=== PATIENT | male | born 1975 | race Caucasian/White ===

== ENCOUNTER 2022-08-25 11:13 | Day surgery (SDC) | payer BC, SELFPAY ==
[2022-08-25] VITALS (13 sets, daily range): BP systolic 92–134; BP diastolic 69–93; PULSE 57–67; RESP 16; TEMP 36.1–36.4; O2SAT 91–98; BMI 32.7
[2022-08-25] MEDS: LACTATED RINGERS 1000 ML 1,000 ML 100 ML IV (11:30)
--- NOTE | 2022-08-25 12:09 | W.ANESCHARGE ---
Anesthesia Charges Start Date/Time Anesthesia Start Date: 08/25/22 Anesthesia Start Time: 12:39 Stop Date/Time Anesthesia Stop Date: 08/25/22 Anesthesia Stop Time: 13:55 Summary Emergency: No
[2022-08-25] MEDS: SODIUM CHLORIDE 0.9 % (FLUSH) 10 ML SYRINGE IVF (12:17)
--- NOTE | 2022-08-25 13:02 | W.ANESCHARGE ---
Anesthesia Charges Start Date/Time Anesthesia Start Date: 08/25/22 Anesthesia Start Time: 12:39 Stop Date/Time Anesthesia Stop Date: 08/25/22 Anesthesia Stop Time: 13:55 Summary Emergency: No
--- NOTE | 2022-08-25 13:07 | SUR.PREOP ---
1145: Home COVID test negative-confirmed by underwriter mortgage loan.
[2022-08-25] MEDS: BUPIVACAINE 0.25% 30 ML INJECTION (13:34)
--- NOTE | 2022-08-25 13:43 | PM.GSPRC ---
Operative Note Date of procedure: 08/25/22 Type of Procedure: Open umbilical hernia repair with placement of mesh Procedure Description: After discussing the risks and benefits of the procedure, the patient signed informed consent.? The operative site was marked and the patient was brought to the operating room and placed on the operating table in supine position.? Care was taken to pad the patient's pressure points.?? The patient was then intubated by anesthesia.?? The operative site was then prepped and draped in the usual sterile fashion.? A time-out was then performed. A curvilinear incision was made at the umbilicus. Dissection was carried down into the subcutaneous tissue using cautery. The hernia sac was encountered and care was taken to not enter it. Dissection was taken down to the fascia, and the umbilical stock was carefully dissected off of the hernia sac. Once the hernia sac was dissected out circumferentially, it was reduced. The fascial edges were then cleared circumferentially. The hernia was 3 cm in size and so the decision was made to use a piece of mesh. A preperitoneal pocket was created using a combination of blunt dissection and cautery. Hemostasis appeared adequate. Once the posterior fascia was clear, a piece of medium Ventralex ST hernia mesh was placed in the preperitoneal space with care to ensure that it laid flat. This was secured into place using 2 0 PDS interrupted sutures. The tails were then trimmed and the fascial opening was closed with a running 0 Vicryl. Local anesthetic was injected into the fascia, skin and subcutaneous tissues. The umbilicus was reapproximated to the fascia. The skin was then closed with running absorbable suture. A sterile dressing was then applied. The patient was then woken and transported to the recovery area in stable condition. ? The patient tolerated the procedure well. Findings: 3 cm umbilical hernia, repaired with mesh. Anesthesia: GETA Surgeon: Nilam Trimble MD Estimated blood loss (mL): 10 Condition: stable Disposition: same day
[2022-08-25] MEDS: fentaNYL 100 MCG/2 ML inj 50 MCG IVP (14:01)
[2022-08-25] MEDS: OXYCODONE 5 MG TABLET PO ×2 (14:40→15:15)
== END 2022-08-25 16:15 | disposition home or self-care (01) ==
PROVIDERS: PCP Family Medicine; Visit Provider Surgery
PROC: (CPT 49585; principal; 2022-08-25 12:45)
DX: K42.9 Umbilical hernia without obstruction or gangrene (principal)
CPT/HCPCS: 49585; 00830; A9270; C1781; J0330; J1100; J1885; J2250; J2405; J2704; J3010; J3490; J7120

== ENCOUNTER 2023-06-08 13:48 | Emergency (ER) | payer BC, SELFPAY ==
[2023-06-08] VITALS (22 sets, daily range): BP systolic 114–143; BP diastolic 82–92; PULSE 58–75; RESP 18; TEMP 36.6; O2SAT 93–97; BMI 31.2
--- NOTE | 2023-06-08 14:15 | CRLHL7_ITS ---
For Patients: As a result of the Cures Act, medical imaging exams and procedure reports are released immediately into your electronic medical record. You may view this report before your referring provider. If you have questions, please contact your health care provider. Indication: Fall Comparison: Three-view shoulder September 19, 2019 Technique: AP internal, external rotation, and scapular-Y views of the left shoulder were obtained Findings: There is no displaced fracture or dislocation. There are degenerative changes of the acromioclavicular and glenohumeral joint with marginal osteophyte formation. The soft tissues are unremarkable. Impression: Degenerative changes of the shoulder without acute osseous abnormality. Dictated by Peng Marin MD @ 06/08/2023 3:36:24 PM (Electronically Signed)
--- NOTE | 2023-06-08 14:15 | CRLHL7_ITS ---
For Patients: As a result of the Cures Act, medical imaging exams and procedure reports are released immediately into your electronic medical record. You may view this report before your referring provider. If you have questions, please contact your health care provider. Indication: Fall from ladder Technique: Volumetric multidetector CT images of the cervical spine were obtained without the administration of IV contrast. Comparison: None available. Findings: The cervical vertebral body heights are grossly maintained with minimal endplate Schmorl`s defects. There is straightening and reversal of the normal cervical lordosis without evidence of significant spondylolisthesis or displaced fracture. There is no displaced fracture or dislocation. There is mild to moderate degenerative disc disease with disc height loss and marginal osteophyte formation. There is moderate facet arthrosis. The paraspinous soft tissues are grossly within normal limits. Impression: Marked straightening of the normal cervical lordosis consistent with spasmodic changes. Mild to moderate degenerative disc disease. No evidence of displaced fracture. Please note that all CT scans at this facility use dose modulation, iterative reconstruction, and/or weight-based dosing when appropriate to reduce radiation dose to as low as reasonably achievable. Dictated by Peng Marin MD @ 06/08/2023 3:47:02 PM (Electronically Signed)
--- NOTE | 2023-06-08 14:15 | CRLHL7_ITS ---
For Patients: As a result of the Century Cures Act, medical imaging exams and procedure reports are released immediately into your electronic medical record. You may view this report before your referring provider. If you have questions, please contact your health care provider. Indication: Fall from ladder, 10 feet Technique: Volumetric multidetector CT images of the head were obtained without the administration of low osmolar intravenous contrast. Comparison: None available Findings: There is no intra-axial or extra-axial fluid collection. There is no mass effect or midline shift. The ventricles and sulci are normal in size and position for age. There is mild chronic small vessel disease change within the subcortical and periventricular white matter. The brain parenchyma is otherwise preserved in attenuation and hobbs-white differentiation. The orbits and their contents are grossly within normal limits. The bony calvarium is grossly intact. The paranasal sinuses are clear. The mastoid air cells are well aerated. Impression: Mild chronic small vessel disease changes white matter without acute intracranial abnormality. Please note that all CT scans at this facility use dose modulation, iterative reconstruction, and/or weight-based dosing when appropriate to reduce radiation dose to as low as reasonably achievable. Dictated by Peng Marin MD @ 06/08/2023 3:42:31 PM (Electronically Signed)
[2023-06-08] MEDS: OXYCODONE 5 MG TABLET PO (14:27)
--- NOTE | 2023-06-08 14:35 | ED_ITS ---
HPI - General Adult General Date Seen: 06/08/23 Chief complaint: Fall/Minor Trauma Stated complaint: Fell off 10 ft ladder at home, back. neck. calf. Time Seen by Provider: 06/08/23 13:51 Source: patient Mode of arrival: ambulatory Limitations: no limitations History of Present Illness HPI narrative: Patient is a 47-year-old male with no pertinent medical problems presenting to the emergency department after a fall off a ladder. He says his but 11 ft up on the ladder when he stood on the top rung causing it to fall over. He landed on his deck. He thought he landed fully on his back butts does note that mostly his left shoulder that hurts given some right calf tenderness. He has some mild pain to this paraspinal muscles of the neck. He does not know if he hit his head does not know for sure if he lost consciousness because all happened too fast. He states he believes shortly after he fell he quickly got up and walked around this evening the mother decided because he was embarrassed that he fell. This happened about 1 hour prior to arrival. He had come in immediately but knows the shoulder pain continues to hurt so he came in to get x-rays of the left shoulder to make sure there are no fractures. He does state he is able to move it without issues. Denies chest pain, abdominal pain, back pain, headache, vision changes, weakness, numbness. No other concerns at this time. He does not know when his last tetanus was Related Data Previous Rx's Medication Instructions Recorded cyclobenzaprine 10 mg tablet 10 mg PO TID #15 tabs 06/08/23 Allergies Allergy/AdvReac Type Severity Reaction Status Date / Time penicillin V Allergy Mild Rash Verified 06/08/23 14:00 penicillin G Allergy Verified 06/08/23 14:00 [facility] Medical History Arthritis of left acromioclavicular joint ?M19.012 - Primary osteoarthritis, left shoulder (ICD-10) Soft tissue injury of right hand ?S69.91XA - Unspecified injury of right wrist, hand and finger(s), initial encounter (ICD-10) Soft tissue injury of left hand ?S69.92XA - Unspecified injury of left wrist, hand and finger(s), initial encounter (ICD-10) Pill esophagitis ?K20.80 - Other esophagitis without bleeding (ICD-10) ?T50.905A - Adverse effect of unspecified drugs, medicaments and biological substances, initial encounter (ICD-10) Alveolitis of jaw ?M27.3 - Alveolitis of jaws (ICD-10) Osteoarthritis of left knee ?M17.12 - Unilateral primary osteoarthritis, left knee (ICD-10) Osteoarthritis of left shoulder ?M19.012 - Primary osteoarthritis, left shoulder (ICD-10) Left radial head fracture (05/15/11) ?S52.122A - Displaced fracture of head of left radius, initial encounter for closed fracture (ICD-10) Surgical History H/O shoulder surgery (~1988) ?Z98.890 - Other specified postprocedural states (ICD-10) History of arthroscopy of left shoulder (09/12/19) ?Z98.890 - Other specified postprocedural states (ICD-10) History of arthroscopy of left knee (09/17/20) ?Z98.890 - Other specified postprocedural states (ICD-10) Social History Smoking Status: Former smoker How often do you have a drink containing alcohol: never How often do you have six or more drinks on one occasion: Never AUDIT-C Alcohol total score: 0 Non-prescribed substance use: denies use Caffeine: Yes service: No Exam Narrative: Exam Narrative: Const: Well-nourished, Well-developed, in mild distress Eyes: PERRL, no conjunctival injection, and symmetrical lids ENMT: Atraumatic external nose and ears. Moist mucous membranes. Neck: Symmetric, trachea midline, No thyromegaly. CVS: RRR, No murmurs or gallops. Peripheral pulses 2+ and equal in all extremities RESP: Unlabored respiratory effort. Clear to auscultation bilaterally. GI: Nontender/Nondistended, No rebound or guarding. MSK:Extremities w/o deformity, Normal Active ROM. No tenderness to palpation noted to the patient's midline cervical, lumbar, thoracic spine. No tenderness noted the patient joints or bones other than left anterior shoulder. Skin: Warm, Dry. Abrasion noted to right merchant and right forearm Neuro: Normal Muscle tone, No focal neurological deficits. Psych: Awake, Alert, & Oriented x3. Appropriate mood and affect. Const: Vital Signs, click to edit/add: Vital Signs - 24 hr 06/08/23 14:00 06/08/23 14:52 06/08/23 14:53 Temperature 97.8 F Pulse Rate 65 65 Pulse Rate [Pulse Oximeter] 70 Respiratory Rate 18 Blood Pressure 117/82 Blood Pressure [Ri ght Upper Arm] 143/90 H Pulse Oximetry 96 96 94 06/08/23 15:00 06/08/23 15:02 06/08/23 15:03 Temperature Pulse Rate 60 62 65 Pulse Rate [Pulse Oximeter] Respiratory Rate Blood Pressure 129/88 Blood Pressure [Ri ght Upper Arm] Pulse Oximetry 96 93 95 06/08/23 15:12 06/08/23 15:15 06/08/23 15:21 Temperature Pulse Rate 67 63 66 Pulse Rate [Pulse Oximeter] Respiratory Rate Blood Pressure 114/84 122/90 H Blood Pressure [Ri ght Upper Arm] Pulse Oximetry 95 95 94 06/08/23 15:22 06/08/23 15:30 06/08/23 15:31 Temperature Pulse Rate 69 64 64 Pulse Rate [Pulse Oximeter] Respiratory Rate Blood Pressure 121/88 Blood Pressure [Ri ght Upper Arm] Pulse Oximetry 96 95 95 06/08/23 15:42 06/08/23 15:45 06/08/23 15:51 Temperature Pulse Rate 65 66 75 Pulse Rate [Pulse Oximeter] Respiratory Rate Blood Pressure 123/83 114/86 Blood Pressure [Ri ght Upper Arm] Pulse Oximetry 96 95 96 06/08/23 15:52 06/08/23 16:00 06/08/23 16:02 Temperature Pulse Rate 62 68 65 Pulse Rate [Pulse Oximeter] Respiratory Rate Blood Pressure 122/91 H Blood Pressure [Ri ght Upper Arm] Pulse Oximetry 96 96 95 06/08/23 16:15 06/08/23 16:30 06/08/23 16:31 Temperature Pulse Rate 61 58 L 63 Pulse Rate [Pulse Oximeter] Respiratory Rate Blood Pressure 127/92 H Blood Pressure [Ri ght Upper Arm] Pulse Oximetry 97 96 95 06/08/23 16:32 Temperature Pulse Rate 65 Pulse Rate [Pulse Oximeter] Respiratory Rate Blood Pressure Blood Pressure [Ri ght Upper Arm] Pulse Oximetry 94 Course Vital Signs Vital signs: Initial Vital Signs Temperature 97.8 F 06/08/23 14:00 Temperature Source Temporal Artery Scan 06/08/23 14:00 Pulse Rate 70 06/08/23 14:00 Respiratory Rate 18 06/08/23 14:00 Blood Pressure 143/90 H 06/08/23 14:00 Blood Pressure Mean 107 H 06/08/23 14:00 Blood Pressure Position Semi-Fowlers 06/08/23 14:00 Pulse Oximetry 96 06/08/23 14:00 Vital Signs Temperature 97.8 F 06/08/23 14:00 Pulse Rate 70 06/08/23 14:00 Respiratory Rate 18 06/08/23 14:00 Blood Pressure 143/90 H 06/08/23 14:00 Pulse Oximetry 96 06/08/23 14:00 Temperature 97.8 F 06/08/23 14:00 Pulse Rate 65 06/08/23 16:32 Respiratory Rate 18 06/08/23 14:00 Blood Pressure 127/92 H 06/08/23 16:31 Pulse Oximetry 94 06/08/23 16:32 Medical Decision Making MDM Narrative Medical decision making narrative: Patient is a 47-year-old male who fell from a ladder bone 11 ft up onto his back. He has not noted lost consciousness or not but thinks he got up right away after the fall. Denies any lightheadedness or dizziness before or after the fall. This happened roughly an hour prior to arrival he is having left shoulder pain sick in emergency department to be evaluated. Pain does radiate to his left side of his neck for this no midline tenderness. He has no midline tenderness to the rest of his spine. No tenderness palpation of the abdomen or chest or to any of his other joints. This point I not believe it was necessary to he imaging thing else other than his head, cervical spine, left shoulder. He does have some tenderness in his right calf but no tenderness noted to the tibia or fibula. Due to the mechanism of injury a TTA was called. He was given oxycodone for pain and a Toradol shot. He says tetanus shot was 5 years ago he had not believe it is necessary to do another 1. Patient's imaging returned showing no acute abnormalities and he is feeling well at this time. He may safely discharged home. He is agreeable to this plan. Imaging Data CT scan - head: Radiologist's impression: Indication: Fall from ladder, 10 feet Technique: Volumetric multidetector CT images of the head were obtained without the administration of low osmolar intravenous contrast. Comparison: None available Findings: There is no intra-axial or extra-axial fluid collection. There is no mass effect or midline shift. The ventricles and sulci are normal in size and position for age. There is mild chronic small vessel disease change within the subcortical and periventricular white matter. The brain parenchyma is otherwise preserved in attenuation and hobbs-white differentiation. The orbits and their contents are grossly within normal limits. The bony calvarium is grossly intact. The paranasal sinuses are clear. The mastoid air cells are well aerated. Impression: Mild chronic small vessel disease changes white matter without acute intracranial abnormality. Please note that all CT scans at this facility use dose modulation, iterative reconstruction, and/or weight-based dosing when appropriate to reduce radiation dose to as low as reasonably achievable. Dictated by Peng Marin MD @ 06/08/2023 3:42:[address] scan cervical spine: Radiologist's impression: Indication: Fall from ladder Technique: Volumetric multidetector CT images of the cervical spine were obtained without the administration of IV contrast. Comparison: None available. Findings: The cervical vertebral body heights are grossly maintained with minimal endplate Schmorl`s defects. There is straightening and reversal of the normal cervical lordosis without evidence of significant spondylolisthesis or displaced fracture. There is no displaced fracture or dislocation. There is mild to moderate degenerative disc disease with disc height loss and marginal osteophyte formation. There is moderate facet arthrosis. The paraspinous soft tissues are grossly within normal limits. Impression: Marked straightening of the normal cervical lordosis consistent with spasmodic changes. Mild to moderate degenerative disc disease. No evidence of displaced fracture. Please note that all CT scans at this facility use dose modulation, iterative reconstruction, and/or weight-based dosing when appropriate to reduce radiation dose to as low as reasonably achievable. Dictated by Peng Marin MD @ 06/08/2023 3:47:02 PM X-ray left shoulder: Radiologist's impression: Indication: Fall Comparison: Three-view shoulder September 19, 2019 Technique: AP internal, external rotation, and scapular-Y views of the left shoulder were obtained Findings: There is no displaced fracture or dislocation. There are degenerative changes of the acromioclavicular and glenohumeral joint with marginal osteophyte formation. The soft tissues are unremarkable. Impression: Degenerative changes of the shoulder without acute osseous abnormality. Dictated by Peng Marin MD @ 06/08/2023 3:36:24 PM Discharge Plan Discharge Clinical Impression: Muscle strain Patient Disposition: Home, Self-Care Condition: Stable Instructions: Cervical Strain (DC), Muscle Strain (DC), Bone Bruise (ED) Additional Instructions: You can take Tylenol and ibuprofen for pain. Return emergency department for any new or worsening symptoms. If your using his shoulder and it is painful you should rest it and do not over work it. Prescriptions: New cyclobenzaprine 10 mg tablet 10 mg PO TID Qty: 15 0RF Follow Up/Referrals: Evelio Sheikh MD [Primary Care Provider] - Stand Alone Forms: [employer] Info Instructions
--- NOTE | 2023-06-08 16:03 | ED.NURSE ---
Pain in shoulder reported by pt, also reporting a headache as well.
[2023-06-08] MEDS: KETOROLAC 30 MG/ML inj IM (16:14)
== END 2023-06-08 16:53 | disposition home or self-care (01) ==
PROVIDERS: Emergency Provider Student in an Organized Health Care Education/Training Program; PCP Family Medicine
DX: S16.1XXA Strain of muscle, fascia and tendon at neck level, initial encounter (principal); W11.XXXA Fall on and from ladder, initial encounter
CPT/HCPCS: 70450; 72125; 73030; 96372; 99283; 99284; 99291; A9270; J1885

== ENCOUNTER 2023-07-20 12:42 | Emergency (ER) | payer BC, SELFPAY ==
[2023-07-20 12:49] VITALS: BP 137/91; PULSE 66; RESP 20; TEMP 36.3; O2SAT 98; BMI 32.7
--- NOTE | 2023-07-20 13:09 | ED.GENADULT ---
HPI - General Adult General Chief complaint: Extremity Pain/Injury, Upper Stated complaint: L shoulder injury Time Seen by Provider: 07/20/23 12:53 Source: patient Mode of arrival: ambulatory Limitations: no limitations History of Present Illness HPI narrative: 47 year male coming in today complaining of shoulder pain. Patient states that he has bone on bone arthritis in that left shoulder. He has had pain for many years however this morning he woke up in the pain was much worse. He believes is likely because he slept on his stomach last night which he has been told in the past not to do. He denies any fevers or chills. No other systemic symptoms. He denies any recent trauma to the shoulder. Nothing seems to make the pain better or worse. He took Tylenol this morning and that did not help. The pain is located inside the shoulder joint radiates all the way up and down his arm and into his neck. Movement makes the pain worse. Related Data Previous Rx's Medication Instructions Recorded cyclobenzaprine 10 mg tablet 10 mg PO TID #15 tabs 06/08/23 methylprednisolone 4 mg tablets in See Rx Instructions PO .COMPLEX 07/20/23 a dose pack (Medrol ([place])) #21 ea Allergies Allergy/AdvReac Type Severity Reaction Status Date / Time penicillin V Allergy Mild Rash Verified 06/08/23 14:00 penicillin G Allergy Verified 06/08/23 14:00 Review of Systems Status of ROS: Reports: 10 or more systems reviewed and unremarkable except as noted in History and below [facility] Medical History Arthritis of left acromioclavicular joint ?M19.012 - Primary osteoarthritis, left shoulder (ICD-10) Soft tissue injury of right hand ?S69.91XA - Unspecified injury of right wrist, hand and finger(s), initial encounter (ICD-10) Soft tissue injury of left hand ?S69.92XA - Unspecified injury of left wrist, hand and finger(s), initial encounter (ICD-10) Pill esophagitis ?K20.80 - Other esophagitis without bleeding (ICD-10) ?T50.905A - Adverse effect of unspecified drugs, medicaments and biological substances, initial encounter (ICD-10) Alveolitis of jaw ?M27.3 - Alveolitis of jaws (ICD-10) Osteoarthritis of left knee ?M17.12 - Unilateral primary osteoarthritis, left knee (ICD-10) Osteoarthritis of left shoulder ?M19.012 - Primary osteoarthritis, left shoulder (ICD-10) Left radial head fracture (05/15/11) ?S52.122A - Displaced fracture of head of left radius, initial encounter for closed fracture (ICD-10) Surgical History H/O shoulder surgery (~1988) ?Z98.890 - Other specified postprocedural states (ICD-10) History of arthroscopy of left shoulder (09/12/19) ?Z98.890 - Other specified postprocedural states (ICD-10) History of arthroscopy of left knee (09/17/20) ?Z98.890 - Other specified postprocedural states (ICD-10) Social History Smoking Status: Former smoker How often do you have a drink containing alcohol: never How often do you have six or more drinks on one occasion: Never AUDIT-C Alcohol total score: 0 Non-prescribed substance use: denies use Caffeine: Yes service: No Exam Narrative: Exam Narrative: Well-nourished well-developed patient, uncomfortable. Alert and oriented. Answers questions appropriately. Mood and affect are appropriate. Thoughts are goal oriented and rational. No tangential or magical thinking noted. Patient speaks in full sentences without needing to catch his breath. HEENT: Normocephalic atraumatic. Pupils are equally round reactive to light. Extraocular muscles are intact. Conjunctivae are moist without any icterus noted. Moist mucous membranes. Extremities: Shoulders normal appearance. He has decreased range of motion with adduction in the plane of the body he cannot go but of 90?. He cannot put his arm behind his back. Is a normal radial pulse. He has no tenderness to palpation of the upper arm, elbow, forearm or wrist. There is no swelling or erythema noted. Const: Vital Signs, click to edit/add: Vital Signs - 24 hr 07/20/23 12:49 Temperature 97.3 F L Pulse Rate [Pulse Oximeter] 66 Respiratory Rate 20 Blood Pressure [Ri ght Upper Arm] 137/91 H Pulse Oximetry 98 Course Course ED Course: Patient received 60 mg of IM Toradol while he was here. Patient tells me that at his last appointment with Orthopedics he was told that surgery was his only option. He is asking me today what other options there are. Vital Signs Vital signs: Initial Vital Signs Temperature 97.3 F L 07/20/23 12:49 Temperature Source Temporal Artery Scan 07/20/23 12:49 Pulse Rate 66 07/20/23 12:49 Respiratory Rate 20 07/20/23 12:49 Blood Pressure 137/91 H 07/20/23 12:49 Blood Pressure Mean 106 H 07/20/23 12:49 Pulse Oximetry 98 07/20/23 12:49 Vital Signs Temperature 97.3 F L 07/20/23 12:49 Pulse Rate 66 07/20/23 12:49 Respiratory Rate 20 07/20/23 12:49 Blood Pressure 137/91 H 07/20/23 12:49 Pulse Oximetry 98 07/20/23 12:49 Temperature 97.3 F L 07/20/23 12:49 Pulse Rate 66 07/20/23 12:49 Respiratory Rate 20 07/20/23 12:49 Blood Pressure 137/91 H 07/20/23 12:49 Pulse Oximetry 98 07/20/23 12:49 Medical Decision Making MDM Narrative Medical decision making narrative: 47-year-old male with osteoarthritis of the left shoulder. We discussed that further imaging today would not yield any new results. I do recommend he follow up with Orthopedics for further management. Discharge Plan Discharge Clinical Impression: Osteoarthritis of left shoulder Patient Disposition: Home, Self-Care Condition: Stable Additional Instructions: Take all steroid as prescribed. Okay to use pain medications as needed. Recommend wearing sling at all times to decrease shoulder movement. Follow-up with orthopedics. Steroid sent to pharmacy, pain medication sent to [facility]. Prescriptions: New methylprednisolone [Medrol ([place])] 4 mg tablets,dose pack See Rx Instructions .ROUTE .COMPLEX Qty: 21 0RF Rx Instructions: orally per package directions No Action cyclobenzaprine 10 mg tablet 10 mg PO TID Qty: 15 0RF Follow Up/Referrals: Evelio Sheikh MD [Primary Care Provider] - Stand Alone Forms: [employer] Info Instructions
[2023-07-20] MEDS: KETOROLAC 60 MG/2 ML inj IM (13:12)
== END 2023-07-20 13:34 | disposition home or self-care (01) ==
LOC: ED 13:15
PROVIDERS: Emergency Provider Family Medicine; PCP Family Medicine
DX: M19.012 Primary osteoarthritis, left shoulder (principal)
CPT/HCPCS: 96372; 99284; J1885

== ENCOUNTER 2023-08-21 17:17 | Emergency (ER) | payer BC, SELFPAY ==
[2023-08-21] VITALS (8 sets, daily range): BP systolic 117; BP diastolic 68; PULSE 69–85; RESP 20; TEMP 38.8; O2SAT 93–98; BMI 32.7
[2023-08-21] MEDS: ACETAMINOPHEN 500 MG TABLET 1000 MG PO (18:37)
[2023-08-21 19:14] LABS: PCR FLU A Negative PCR FLU A (Negative); PCR FLU B Negative PCR FLU B (Negative); PCR RSV Negative PCR RSV (Negative)
[2023-08-21 19:15] LABS: SARS PCR* Negative SARS-CoV-2 (Negative)
--- NOTE | 2023-08-21 21:41 | ED_ITS ---
HPI - General Adult General Chief complaint: Dizziness/Vertigo Stated complaint: Dizzy, nausea, headache Time Seen by Provider: 08/21/23 21:41 Related Data Home Medications Medication Instructions Recorded Confirmed hydrocodone 5 mg-acetaminophen 325 1 tab PO DAILY PRN 08/21/23 08/21/23 mg tablet Previous Rx's Medication Instructions Recorded cyclobenzaprine 10 mg tablet 10 mg PO TID #15 tabs 06/08/23 Allergies Allergy/AdvReac Type Severity Reaction Status Date / Time penicillin V Allergy Mild Rash Verified 08/21/23 18:22 penicillin G Allergy Verified 08/21/23 18:22 [facility] Medical History Arthritis of left acromioclavicular joint ?M19.012 - Primary osteoarthritis, left shoulder (ICD-10) Soft tissue injury of right hand ?S69.91XA - Unspecified injury of right wrist, hand and finger(s), initial encounter (ICD-10) Soft tissue injury of left hand ?S69.92XA - Unspecified injury of left wrist, hand and finger(s), initial encounter (ICD-10) Pill esophagitis ?K20.80 - Other esophagitis without bleeding (ICD-10) ?T50.905A - Adverse effect of unspecified drugs, medicaments and biological substances, initial encounter (ICD-10) Alveolitis of jaw ?M27.3 - Alveolitis of jaws (ICD-10) Osteoarthritis of left knee ?M17.12 - Unilateral primary osteoarthritis, left knee (ICD-10) Osteoarthritis of left shoulder ?M19.012 - Primary osteoarthritis, left shoulder (ICD-10) Left radial head fracture (05/15/11) ?S52.122A - Displaced fracture of head of left radius, initial encounter for closed fracture (ICD-10) Surgical History H/O shoulder surgery (~1988) ?Z98.890 - Other specified postprocedural states (ICD-10) History of arthroscopy of left shoulder (09/12/19) ?Z98.890 - Other specified postprocedural states (ICD-10) History of arthroscopy of left knee (09/17/20) ?Z98.890 - Other specified postprocedural states (ICD-10) Social History Smoking Status: Former smoker How often do you have a drink containing alcohol: never How often do you have six or more drinks on one occasion: Never AUDIT-C Alcohol total score: 0 Non-prescribed substance use: denies use Caffeine: Yes service: No Exam Const: Vital Signs, click to edit/add: Vital Signs - 24 hr 08/21/23 18:15 08/21/23 18:37 Temperature 101.9 F H 101.9 F H Pulse Rate [Right Pulse Oximeter] 85 Respiratory Rate 20 Blood Pressure [Ri ght Upper Arm] 117/68 Pulse Oximetry 98 Oxygen Delivery Me thod Room Air Course Vital Signs Vital signs: Initial Vital Signs Temperature 101.9 F H 08/21/23 18:15 Temperature Source Temporal Artery Scan 08/21/23 18:15 Pulse Rate 85 08/21/23 18:15 Respiratory Rate 20 08/21/23 18:15 Blood Pressure 117/68 08/21/23 18:15 Blood Pressure Mean 84 08/21/23 18:15 Blood Pressure Position Sitting 08/21/23 18:15 Pulse Oximetry 98 08/21/23 18:15 Oxygen Delivery Method Room Air 08/21/23 18:15 Vital Signs Temperature 101.9 F H 08/21/23 18:15 Pulse Rate 85 08/21/23 18:15 Respiratory Rate 20 08/21/23 18:15 Blood Pressure 117/68 08/21/23 18:15 Pulse Oximetry 98 08/21/23 18:15 Oxygen Delivery Method Room Air 08/21/23 18:15 Temperature 101.9 F H 08/21/23 18:37 Pulse Rate 85 08/21/23 18:15 Respiratory Rate 20 08/21/23 18:15 Blood Pressure 117/68 08/21/23 18:15 Pulse Oximetry 98 08/21/23 18:15 Oxygen Delivery Method Room Air 08/21/23 18:15 Medications Administered Medications: Generic Name Dose Route Start Last Admin Trade Name Freq PRN Reason Stop Dose Admin Acetaminophen 1,000 mg 08/21/23 18:28 08/21/23 18:37 Acetaminophen 500 Mg Tablet PO 08/21/23 18:29 1,000 mg ONCE ONE Administration Medical Decision Making Lab Data Labs: Lab Results 08/21/23 Range/Units 18:23 SARS-CoV-2 (PCR) Negative SARS-CoV-2 (Negative) Influenza Type A (PCR) Negative PCR FLU A (Negative) Influenza Type B (PCR) Negative PCR FLU B (Negative) RSV (PCR) Negative PCR RSV (Negative) Discharge Plan Discharge Prescriptions: No Action cyclobenzaprine 10 mg tablet 10 mg PO TID Qty: 15 0RF hydrocodone-acetaminophen 5-325 mg tablet 1 tab PO DAILY PRN Follow Up/Referrals: Evelio Sheikh MD [Primary Care Provider] -
--- NOTE | 2023-08-21 21:42 | CRLHL7_ITS ---
For Patients: As a result of the Century Cures Act, medical imaging exams and procedure reports are released immediately into your electronic medical record. You may view this report before your referring provider. If you have questions, please contact your health care provider. INDICATION: Fever, cough TECHNIQUE: Chest 2 view. Permanently recorded images are archived. COMPARISON: 11/20/2013 FINDINGS: Cardiovascular and mediastinum: Heart size and vasculature are normal in caliber and appearance. Lungs and pleural spaces: The lungs are clear. No pleural effusion or pneumothorax. Bones and soft tissues: Unremarkable for age. IMPRESSION: No evidence of an acute pulmonary process. Dictated by Prince Alvarez MD @ 08/21/2023 11:13:54 PM (Electronically Signed)
--- NOTE | 2023-08-21 22:02 | ED_ITS ---
HPI - General Adult General Date Seen: 08/21/23 <Bonnie Pascual MD - Last Filed: 08/22/23 17:25> Chief complaint: Dizziness/Vertigo <Bonnie Pascual MD - Last Filed: 08/22/23 17:25> Stated complaint: Dizzy, nausea, headache <MD Flaquita Jose Last Filed: 08/22/23 17:25> Time Seen by Provider: 08/21/23 21:41 <Bonnie Pascual MD - Last Filed: 08/22/23 17:25> Source: patient and family <MD Flaquita Jose Last Filed: 08/22/23 17:25> Mode of arrival: ambulatory <MD Flaquita Jose Last Filed: 08/22/23 17:25> Limitations: no limitations <MD Flaquita Jose Last Filed: 08/22/23 17:25> History of Present Illness HPI narrative: Patient is a 47-year-old male presenting for evaluation of fever onset around 5:00 p.m. yesterday associated with headache, body aches, cough, nausea and an episode or 2 of vomiting. He says he feels constipated, does not have abdominal pain. No unusual rashes. No ill contacts that he is aware of. Viral swab was obtained in triage and was negative for COVID, influenza and RSV. Denies prior medical history, does not smoke or drink. Here tonight with his . <Bonnie Pascual MD - Last Filed: 08/22/23 17:25> Related Data Home medications: Home Medications Medication Instructions Recorded Confirmed hydrocodone 5 mg-acetaminophen 325 1 tab PO DAILY PRN 08/21/23 08/21/23 mg tablet Previous Rx's Medication Instructions Recorded cyclobenzaprine 10 mg tablet 10 mg PO TID #15 tabs 06/08/23 <MD Flaquita Jose Last Filed: 08/22/23 17:25> Allergies/adverse reactions: Allergies Allergy/AdvReac Type Severity Reaction Status Date / Time penicillin V Allergy Mild Rash Verified 08/21/23 18:22 penicillin G Allergy Verified 08/21/23 18:22 <MD Flaquita Jose Last Filed: 08/22/23 17:25> Review of Systems Status of ROS: Reports: 10 or more systems reviewed and unremarkable except as noted in History and below <Bonnie Pascual MD - Last Filed: 08/22/23 17:25> [facility] Medical History: Medical History Arthritis of left acromioclavicular joint ?M19.012 - Primary osteoarthritis, left shoulder (ICD-10) Soft tissue injury of right hand ?S69.91XA - Unspecified injury of right wrist, hand and finger(s), initial encounter (ICD-10) Soft tissue injury of left hand ?S69.92XA - Unspecified injury of left wrist, hand and finger(s), initial encounter (ICD-10) Pill esophagitis ?K20.80 - Other esophagitis without bleeding (ICD-10) ?T50.905A - Adverse effect of unspecified drugs, medicaments and biological substances, initial encounter (ICD-10) Alveolitis of jaw ?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.3 - Alveolitis of jaws (ICD-10) Osteoarthritis of left knee ?M17.12 - Unilateral primary osteoarthritis, left knee (ICD-10) Osteoarthritis of left shoulder ?M19.012 - Primary osteoarthritis, left shoulder (ICD-10) Left radial head fracture (05/15/11) ?S52.122A - Displaced fracture of head of left radius, initial encounter for closed fracture (ICD-10) <Bonnie Pascual MD - Last Filed: 08/22/23 17:25> Surgical History: Surgical History H/O shoulder surgery (~1988) ?Z98.890 - Other specified postprocedural states (ICD-10) History of arthroscopy of left shoulder (09/12/19) ?Z98.890 - Other specified postprocedural states (ICD-10) History of arthroscopy of left knee (09/17/20) ?Z98.890 - Other specified postprocedural states (ICD-10) <Bonnie Pascual MD - Last Filed: 08/22/23 17:25> Social History: Social History Smoking Status: Former smoker How often do you have a drink containing alcohol: never How often do you have six or more drinks on one occasion: Never AUDIT-C Alcohol total score: 0 Non-prescribed substance use: denies use Caffeine: Yes service: No <Bonnie Pascual MD - Last Filed: 08/22/23 17:25> Exam Narrative: Exam Narrative: Vital signs as noted above. In general, an alert, nontoxic male, looks like he does not feel well. Head: Normocephalic, atraumatic. Eyes: Pupils are equal reactive. Extraocular movements are full. Conjunctivae are normal. ENT: Mucous membranes are moist. Neck: Supple without lymphadenopathy. No meningeal signs, no stridor. Heart: Regular rate and rhythm. No murmur or rub. Lungs: Clear bilaterally. No increased work of breathing, crackles or wheezes. Abdomen: Soft and nontender. No organomegaly. Extremities: Well perfused. No edema. No calf tenderness. Pulses intact. Neurologic: Patient is alert and oriented to person and place. Speech is fluent. Face is symmetric. Moves all extremities equally. Affect: Normal. Skin: Warm and dry. Well perfused. <Bonnie Pascual MD - Last Filed: 08/22/23 17:25> Const: Vital Signs, click to edit/add: Vital Signs - 24 hr 08/21/23 18:15 08/21/23 18:37 08/21/23 22:30 Temperature 101.9 F H 101.9 F H Pulse Rate 70 Pulse Rate [Right Pulse Oximeter] 85 Respiratory Rate 20 Blood Pressure [Ri ght Upper Arm] 117/68 Pulse Oximetry 98 94 Oxygen Delivery Me thod Room Air Room Air 08/21/23 22:45 08/21/23 23:00 08/21/23 23:15 Temperature Pulse Rate 72 74 72 Pulse Rate [Right Pulse Oximeter] Respiratory Rate Blood Pressure [Ri ght Upper Arm] Pulse Oximetry 93 93 93 Oxygen Delivery Me thod 08/21/23 23:30 08/21/23 23:45 Temperature Pulse Rate 71 69 Pulse Rate [Right Pulse Oximeter] Respiratory Rate Blood Pressure [Ri ght Upper Arm] Pulse Oximetry 95 93 Oxygen Delivery Me thod <Bonnie Pascual MD - Last Filed: 08/22/23 17:25> Vital Signs, click to edit/add: Vital Signs - 24 hr 08/21/23 18:15 08/21/23 18:37 08/21/23 22:30 Temperature 101.9 F H 101.9 F H Pulse Rate 70 Pulse Rate [Right Pulse Oximeter] 85 Respiratory Rate 20 Blood Pressure [Ri ght Upper Arm] 117/68 Pulse Oximetry 98 94 Oxygen Delivery Me thod Room Air Room Air 08/21/23 22:45 08/21/23 23:00 08/21/23 23:15 Temperature Pulse Rate 72 74 72 Pulse Rate [Right Pulse Oximeter] Respiratory Rate Blood Pressure [Ri ght Upper Arm] Pulse Oximetry 93 93 93 Oxygen Delivery Me thod 08/21/23 23:30 08/21/23 23:45 Temperature Pulse Rate 71 69 Pulse Rate [Right Pulse Oximeter] Respiratory Rate Blood Pressure [Ri ght Upper Arm] Pulse Oximetry 95 93 Oxygen Delivery Me thod <Manoj Collins MD - Last Filed: 08/23/23 11:51> Documenting provider has reviewed patient's vital signs: yes <Bonnie Pascual MD - Last Filed: 08/22/23 17:25> Course Course ED Course: Patient had an IV established and was given Toradol, Zofran and a L of fluid. He is feeling significantly better. Diagnostic considerations include viral illness, meningitis, pneumonia, or other bacterial infection. His viral swab was negative, but labs are also thus far reassuring with a white count of 8.2, lactate of 1.2. LFTs, basic metabolic panel and CRP are pending. Chest x- ray was negative by my review, final read negative. He does not have meningeal signs, normal labs are reassuring, I do not think he needs lumbar puncture at this time. He is presenting very much like an influenza although his test was negative. Signed out to Dr. Collins for final disposition and plan pending remaining labs. Plan to treat as viral assuming these are normal, supportive care, return for worsening symptoms such as persistent vomiting, abdominal pain, unusual rashes, neck pain or stiffness etcetera. Primary care follow-up if not improving over the next week <Bonnie Pascual MD - Last Filed: 08/22/23 17:25> Vital Signs Vital signs: Initial Vital Signs Temperature 101.9 F H 08/21/23 18:15 Temperature Source Temporal Artery Scan 08/21/23 18:15 Pulse Rate 85 08/21/23 18:15 Respiratory Rate 20 08/21/23 18:15 Blood Pressure 117/68 08/21/23 18:15 Blood Pressure Mean 84 08/21/23 18:15 Blood Pressure Position Sitting 08/21/23 18:15 Pulse Oximetry 98 08/21/23 18:15 Oxygen Delivery Method Room Air 08/21/23 18:15 Vital Signs Temperature 101.9 F H 08/21/23 18:15 Pulse Rate 85 08/21/23 18:15 Respiratory Rate 20 08/21/23 18:15 Blood Pressure 117/68 08/21/23 18:15 Pulse Oximetry 98 08/21/23 18:15 Oxygen Delivery Method Room Air 08/21/23 18:15 Temperature 101.9 F H 08/21/23 18:37 Pulse Rate 69 08/21/23 23:45 Respiratory Rate 20 08/21/23 18:15 Blood Pressure 117/68 08/21/23 18:15 Pulse Oximetry 93 08/21/23 23:45 Oxygen Delivery Method Room Air 08/21/23 22:30 <Bonnie Pascual MD - Last Filed: 08/22/23 17:25> Initial Vital Signs Temperature 101.9 F H 08/21/23 18:15 Temperature Source Temporal Artery Scan 08/21/23 18:15 Pulse Rate 85 08/21/23 18:15 Respiratory Rate 20 08/21/23 18:15 Blood Pressure 117/68 08/21/23 18:15 Blood Pressure Mean 84 08/21/23 18:15 Blood Pressure Position Sitting 08/21/23 18:15 Pulse Oximetry 98 08/21/23 18:15 Oxygen Delivery Method Room Air 08/21/23 18:15 Vital Signs Temperature 101.9 F H 08/21/23 18:15 Pulse Rate 85 08/21/23 18:15 Respiratory Rate 20 08/21/23 18:15 Blood Pressure 117/68 08/21/23 18:15 Pulse Oximetry 98 08/21/23 18:15 Oxygen Delivery Method Room Air 08/21/23 18:15 Temperature 101.9 F H 08/21/23 18:37 Pulse Rate 69 08/21/23 23:45 Respiratory Rate 20 08/21/23 18:15 Blood Pressure 117/68 08/21/23 18:15 Pulse Oximetry 93 08/21/23 23:45 Oxygen Delivery Method Room Air 08/21/23 22:30 <Manoj Collins MD - Last Filed: 08/23/23 11:51> Medications Administered Medications: Discontinued Medications Generic Name Dose Route Start Last Admin Trade Name Pradip PRN Reason Stop Dose Admin Acetaminophen 1,000 mg 08/21/23 18:28 08/21/23 18:37 Acetaminophen 500 Mg Tablet PO 08/21/23 18:29 1,000 mg ONCE ONE Administration Hydrocodone Bitart/Acetaminophen 2 tab 08/22/23 00:27 08/22/23 00:53 Hydrocodone-Acetamin 5-325 Mg 1 Tab PO 08/22/23 00:28 2 tab ONCE ONE Administration Sodium Chloride 1,000 mls @ 1,000 mls/hr 08/21/23 21:45 08/22/23 00:19 0.9 % Sodium Chloride 1000 Ml IV 08/21/23 22:44 Infused .Q1H MARIA DOLORES Infusion Ketorolac Tromethamine 15 mg 08/21/23 21:42 08/21/23 22:30 Ketorolac 15 Mg/Ml Inj IVP 08/21/23 21:43 15 mg ONCE ONE Administration Ondansetron HCl 4 mg 08/21/23 21:42 08/21/23 22:31 Ondansetron 2 Mg/Ml Inj IVP 08/21/23 21:43 4 mg ONCE ONE Administration <Bonnie Pascual MD - Last Filed: 08/22/23 17:25> Discontinued Medications Generic Name Dose Route Start Last Admin Trade Name Pradip PRN Reason Stop Dose Admin Acetaminophen 1,000 mg 08/21/23 18:28 08/21/23 18:37 Acetaminophen 500 Mg Tablet PO 08/21/23 18:29 1,000 mg ONCE ONE Administration Hydrocodone Bitart/Acetaminophen 2 tab 08/22/23 00:27 08/22/23 00:53 Hydrocodone-Acetamin 5-325 Mg 1 Tab PO 08/22/23 00:28 2 tab ONCE ONE Administration Sodium Chloride 1,000 mls @ 1,000 mls/hr 08/21/23 21:45 08/22/23 00:19 0.9 % Sodium Chloride 1000 Ml IV 08/21/23 22:44 Infused .Q1H MARIA DOLORES Infusion Ketorolac Tromethamine 15 mg 08/21/23 21:42 08/21/23 22:30 Ketorolac 15 Mg/Ml Inj IVP 08/21/23 21:43 15 mg ONCE ONE Administration Ondansetron HCl 4 mg 08/21/23 21:42 08/21/23 22:31 Ondansetron 2 Mg/Ml Inj IVP 08/21/23 21:43 4 mg ONCE ONE Administration <Manoj Collins MD - Last Filed: 08/23/23 11:51> Medical Decision Making MDM Narrative Medical decision making narrative: Karina -- Inherited patient at change of shift pending some labs namely liver panel which was normal. Still complaining of headache was wondering if anything else could be done. Discussed ketamine infusion. Settled on a dose of Boyd. Urinalysis still pending. He wonders what this might have been. This is the 3rd instance of these episodes as he described in the last couple of we eks. This was the worst of the 3. With further clarification it appears that he has had 3 headaches over the last 2 weeks. These are not waking him from sleep. They seem to be self limited. He describes just intense headaches at the upper fronto-parietal head. He does acknowledge a history of allergies treated generally with Zyrtec? Or Cecelia? Symptoms in general for allergies appear to affect his face/nose/sinuses. No facial pain currently. Discussed further options for care/treatment/follow-up. See patient discharge plan <Manoj Collins MD - Last Filed: 08/23/23 11:51> Lab Data Labs: Lab Results 08/21/23 08/21/23 08/21/23 Range/Units 18:23 21:42 21:43 WBC 8.24 (4.50-11.00) K/uL RBC 4.90 (4.30-5.90) m/uL Hgb 15.2 (13.5-17.5) gm/dL Hct 45.0 (37.0-53.0) % MCV 92 (80-100) fL MCH 31 (26-34) pg MCHC 34 (32-36) gm/dL RDW Coeff of Neha 12.7 (11.5-15.5) % Plt Count 284 (140-440) K/uL Neut % (Auto) 79.4 H (42.0-72.0) % Lymph % (Auto) 13.6 L (20-44) % [place] % (Auto) 6.1 (0.0-11.0) % Eos % (Auto) 0.1 (0.0-7.0) % Baso % (Auto) 0.1 (0.0-3.0) % Neut # (Auto) 6.50 (1.7-7.0) K/uL Lymph # (Auto) 1.10 (0.90-2.90) K/uL [place] # (Auto) 0.50 (0.00-0.90) K/UL Eos # (Auto) 0.01 (0.00-0.50) K/uL Baso # (Auto) 0.01 (0.00-0.30) K/uL Abs Immat Gran (auto) 0.06 (0.00-0.30) K/uL Imm/Tot Granulo (auto) 0.7 % Sodium (135-149) mmol/L Potassium (3.6-5.1) mmol/L Chloride (96-114) mmol/L Carbon Dioxide (20-32) mmol/L Anion Gap (7-15) mEq/L BUN (5-24) mg/dL Creatinine (0.5-1.5) mg/dL Estimated Creat Clear Estimated GFR ml/min Glucose (60-115) mg/dL Lactate 1.2 (0.5-1.9) mmol/L Calcium (8.4-10.6) mg/dL Total Bilirubin (0.1-1.5) mg/dL Direct Bilirubin (0.0-0.5) mg/dL AST (12-35) U/L ALT (4-50) U/L Alkaline Phosphatase (40-150) U/L C-Reactive Protein (0.5-1.0) mg/dL Total Protein (6.0-8.3) g/dL Albumin (3.3-5.0) g/dL Urine Color (Yellow) Urine Appearance (Clear) Urine pH (5.0-8.5) Ur Specific [place] (1.000-1.030) Urine Protein (Negative) Urine Glucose (UA) (Negative) Urine Ketones (Negative) Urine Blood (Negative) Urine Nitrite (Negative) Urine Bilirubin (Negative) Urine Urobilinogen (0.2-1.0) Ur Leukocyte Esterase (Negative) Urine RBC (0-2) Urine WBC (0-5) Ur Squamous Epith Cells (None-Few) Urine Bacteria (None) SARS-CoV-2 (PCR) Negative SARS-CoV-2 (Negative) Influenza Type A (PCR) Negative PCR FLU A (Negative) Influenza Type B (PCR) Negative PCR FLU B (Negative) RSV (PCR) Negative PCR RSV (Negative) 08/21/23 08/22/23 Range/Units Unknown 00:20 WBC (4.50-11.00) K/uL RBC (4.30-5.90) m/uL Hgb (13.5-17.5) gm/dL Hct (37.0-53.0) % MCV (80-100) fL MCH (26-34) pg MCHC (32-36) gm/dL RDW Coeff of Neha (11.5-15.5) % Plt Count (140-440) K/uL Neut % (Auto) (42.0-72.0) % Lymph % (Auto) (20-44) % [place] % (Auto) (0.0-11.0) % Eos % (Auto) (0.0-7.0) % Baso % (Auto) (0.0-3.0) % Neut # (Auto) (1.7-7.0) K/uL Lymph # (Auto) (0.90-2.90) K/uL [place] # (Auto) (0.00-0.90) K/UL Eos # (Auto) (0.00-0.50) K/uL Baso # (Auto) (0.00-0.30) K/uL Abs Immat Gran (auto) (0.00-0.30) K/uL Imm/Tot Granulo (auto) % Sodium 137 (135-149) mmol/L Potassium 4.1 (3.6-5.1) mmol/L Chloride 106 (96-114) mmol/L Carbon Dioxide 21 (20-32) mmol/L Anion Gap 10 (7-15) mEq/L BUN 14 (5-24) mg/dL Creatinine 0.8 (0.5-1.5) mg/dL Estimated Creat Clear 108.06 Estimated GFR 108 ml/min Glucose 135 H (60-115) mg/dL Lactate (0.5-1.9) mmol/L Calcium 9.4 (8.4-10.6) mg/dL Total Bilirubin 1.2 (0.1-1.5) mg/dL Direct Bilirubin 0.1 (0.0-0.5) mg/dL AST 33 (12-35) U/L ALT 33 (4-50) U/L Alkaline Phosphatase 41 (40-150) U/L C-Reactive Protein 0.6 (0.5-1.0) mg/dL Total Protein 8.2 (6.0-8.3) g/dL Albumin 4.9 (3.3-5.0) g/dL Urine Color Yellow (Yellow) Urine Appearance Clear (Clear) Urine pH 5.5 (5.0-8.5) Ur Specific [place] 1.020 (1.000-1.030) Urine Protein Negative (Negative) Urine Glucose (UA) Negative (Negative) Urine Ketones Trace A (Negative) Urine Blood Negative (Negative) Urine Nitrite Negative (Negative) Urine Bilirubin Negative (Negative) Urine Urobilinogen 0.2 (0.2-1.0) Ur Leukocyte Esterase Negative (Negative) Urine RBC 0-2 (0-2) Urine WBC 0-2 (0-5) Ur Squamous Epith Cells Few (None-Few) Urine Bacteria None (None) SARS-CoV-2 (PCR) (Negative) Influenza Type A (PCR) (Negative) Influenza Type B (PCR) (Negative) RSV (PCR) (Negative) <Bonnie Pascual MD - Last Filed: 08/22/23 17:25> Lab Results 08/21/23 08/21/23 08/21/23 Range/Units 18:23 21:42 21:43 WBC 8.24 (4.50-11.00) K/uL RBC 4.90 (4.30-5.90) m/uL Hgb 15.2 (13.5-17.5) gm/dL Hct 45.0 (37.0-53.0) % MCV 92 (80-100) fL MCH 31 (26-34) pg MCHC 34 (32-36) gm/dL RDW Coeff of Neha 12.7 (11.5-15.5) % Plt Count 284 (140-440) K/uL Neut % (Auto) 79.4 H (42.0-72.0) % Lymph % (Auto) 13.6 L (20-44) % [place] % (Auto) 6.1 (0.0-11.0) % Eos % (Auto) 0.1 (0.0-7.0) % Baso % (Auto) 0.1 (0.0-3.0) % Neut # (Auto) 6.50 (1.7-7.0) K/uL Lymph # (Auto) 1.10 (0.90-2.90) K/uL [place] # (Auto) 0.50 (0.00-0.90) K/UL Eos # (Auto) 0.01 (0.00-0.50) K/uL Baso # (Auto) 0.01 (0.00-0.30) K/uL Abs Immat Gran (auto) 0.06 (0.00-0.30) K/uL Imm/Tot Granulo (auto) 0.7 % Sodium (135-149) mmol/L Potassium (3.6-5.1) mmol/L Chloride (96-114) mmol/L Carbon Dioxide (20-32) mmol/L Anion Gap (7-15) mEq/L BUN (5-24) mg/dL Creatinine (0.5-1.5) mg/dL Estimated Creat Clear Estimated GFR ml/min Glucose (60-115) mg/dL Lactate 1.2 (0.5-1.9) mmol/L Calcium (8.4-10.6) mg/dL Total Bilirubin (0.1-1.5) mg/dL Direct Bilirubin (0.0-0.5) mg/dL AST (12-35) U/L ALT (4-50) U/L Alkaline Phosphatase (40-150) U/L C-Reactive Protein (0.5-1.0) mg/dL Total Protein (6.0-8.3) g/dL Albumin (3.3-5.0) g/dL Urine Color (Yellow) Urine Appearance (Clear) Urine pH (5.0-8.5) Ur Specific [place] (1.000-1.030) Urine Protein (Negative) Urine Glucose (UA) (Negative) Urine Ketones (Negative) Urine Blood (Negative) Urine Nitrite (Negative) Urine Bilirubin (Negative) Urine Urobilinogen (0.2-1.0) Ur Leukocyte Esterase (Negative) Urine RBC (0-2) Urine WBC (0-5) Ur Squamous Epith Cells (None-Few) Urine Bacteria (None) SARS-CoV-2 (PCR) Negative SARS-CoV-2 (Negative) Influenza Type A (PCR) Negative PCR FLU A (Negative) Influenza Type B (PCR) Negative PCR FLU B (Negative) RSV (PCR) Negative PCR RSV (Negative) 08/21/23 08/22/23 Range/Units Unknown 00:20 WBC (4.50-11.00) K/uL RBC (4.30-5.90) m/uL Hgb (13.5-17.5) gm/dL Hct (37.0-53.0) % MCV (80-100) fL MCH (26-34) pg MCHC (32-36) gm/dL RDW Coeff of Neha (11.5-15.5) % Plt Count (140-440) K/uL Neut % (Auto) (42.0-72.0) % Lymph % (Auto) (20-44) % [place] % (Auto) (0.0-11.0) % Eos % (Auto) (0.0-7.0) % Baso % (Auto) (0.0-3.0) % Neut # (Auto) (1.7-7.0) K/uL Lymph # (Auto) (0.90-2.90) K/uL [place] # (Auto) (0.00-0.90) K/UL Eos # (Auto) (0.00-0.50) K/uL Baso # (Auto) (0.00-0.30) K/uL Abs Immat Gran (auto) (0.00-0.30) K/uL Imm/Tot Granulo (auto) % Sodium 137 (135-149) mmol/L Potassium 4.1 (3.6-5.1) mmol/L Chloride 106 (96-114) mmol/L Carbon Dioxide 21 (20-32) mmol/L Anion Gap 10 (7-15) mEq/L BUN 14 (5-24) mg/dL Creatinine 0.8 (0.5-1.5) mg/dL Estimated Creat Clear 108.06 Estimated GFR 108 ml/min Glucose 135 H (60-115) mg/dL Lactate (0.5-1.9) mmol/L Calcium 9.4 (8.4-10.6) mg/dL Total Bilirubin 1.2 (0.1-1.5) mg/dL Direct Bilirubin 0.1 (0.0-0.5) mg/dL AST 33 (12-35) U/L ALT 33 (4-50) U/L Alkaline Phosphatase 41 (40-150) U/L C-Reactive Protein 0.6 (0.5-1.0) mg/dL Total Protein 8.2 (6.0-8.3) g/dL Albumin 4.9 (3.3-5.0) g/dL Urine Color Yellow (Yellow) Urine Appearance Clear (Clear) Urine pH 5.5 (5.0-8.5) Ur Specific [place] 1.020 (1.000-1.030) Urine Protein Negative (Negative) Urine Glucose (UA) Negative (Negative) Urine Ketones Trace A (Negative) Urine Blood Negative (Negative) Urine Nitrite Negative (Negative) Urine Bilirubin Negative (Negative) Urine Urobilinogen 0.2 (0.2-1.0) Ur Leukocyte Esterase Negative (Negative) Urine RBC 0-2 (0-2) Urine WBC 0-2 (0-5) Ur Squamous Epith Cells Few (None-Few) Urine Bacteria None (None) SARS-CoV-2 (PCR) (Negative) Influenza Type A (PCR) (Negative) Influenza Type B (PCR) (Negative) RSV (PCR) (Negative) <Manoj Collins MD - Last Filed: 08/23/23 11:51> Discharge Plan Discharge Clinical Impression: Influenza-like illness, Fever, Headache <Bonnie Pascual MD - Last Filed: 08/22/23 17:25> Patient Disposition: Home, Self-Care <Bonnie Pascual MD - Last Filed: 08/22/23 17:25> Condition: Improved <Bonnie Pascual MD - Last Filed: 08/22/23 17:25> Instructions: Fever in Adults (ED) <Bonnie Pascual MD - Last Filed: 08/22/23 17:25> Additional Instructions: At this time, labs are unremarkable, chest x-ray does not show evidence of pneumonia, and symptoms are likely related to an influenza like virus. I would expect over the next 5-7 days you should improve. If you worsen or have new symptoms such as shortness of breath, abdominal pain, neck pain or stiffness, unusual rashes, return at any time to the emergency department for repeat evaluation. Otherwise, see primary care if not improved over the next week. Ibuprofen 400 mg +/-1000 mg of Tylenol 3 times daily as needed with food. It is reassuring that these headaches spontaneously resolve. Like we discussed, they may be related to your allergies. You might consider nasal steroid spray as treatment regularly dosed which is available [id number]. Might be good to have a follow-up in primary care to discuss these headaches further and whether other investigation or treatment is necessary. Excedrin equivalent medication can be helpful to break headaches. In general do focus on hydration. <Bonnie Pascual MD - Last Filed: 08/22/23 17:25> Prescriptions: No Action cyclobenzaprine 10 mg tablet 10 mg PO TID Qty: 15 0RF hydrocodone-acetaminophen 5-325 mg tablet 1 tab PO DAILY PRN <Bonnie Pascual MD - Last Filed: 08/22/23 17:25> Follow Up/Referrals: Evelio Sheikh MD [Primary Care Provider] - <Bonnie Pascual MD - Last Filed: 08/22/23 17:25> Stand Alone Forms: [employer] Info Instructions <Bonnie Pascual MD - Last Filed: 08/22/23 17:25>
[2023-08-21] MEDS: KETOROLAC 15 MG/ML inj IVP (22:30)
[2023-08-21 22:31] LABS: Lactate Sepsis w/Reflex* 1.2 mmol/L (0.5-1.9)
[2023-08-21] MEDS: ONDANSETRON 2 MG/ML inj 4 MG IVP (22:31)
[2023-08-21] MEDS: 0.9 % SODIUM CHLORIDE 1000 ml 1,000 ML IV (22:31)
[2023-08-21 22:43] LABS: Basophils Absolute Auto 0.01 K/uL (0.00-0.30); Basophils Percent Auto 0.1 % (0.0-3.0); Eosinophils Absolute Auto 0.01 K/uL (0.00-0.50); Eosinophils Percent Auto 0.1 % (0.0-7.0); Hemoglobin* 15.2 gm/dL (13.5-17.5); Immature Granulocytes Abs Auto 0.06 K/uL (0.00-0.30); Immature Granulocytes Pct Auto 0.7 %; Lymphocytes Percent Auto 13.6 % (20-44); Mean Corpuscular HGB Conc 34 gm/dL (32-36); Mean Corpuscular Hemoglobin 31 pg (26-34); Mean Corpuscular Volume 92 fL (80-100); Monocytes Percent Auto 6.1 % (0.0-11.0); Neutrophils Percent Auto 79.4 % (42.0-72.0); Platelet Count* 284 K/uL (140-440); RDW Coefficient of Variation % 12.7 % (11.5-15.5); White Blood Count* 8.24 K/uL (4.50-11.00)
[2023-08-21 22:56] LABS: Slide Review Reflex No
[2023-08-21 23:55] LABS: Anion Gap 10 mEq/L (7-15); Blood Urea Nitrogen* 14 mg/dL (5-24); Carbon Dioxide* 21 mmol/L (20-32); Chloride* 106 mmol/L (96-114); Creatinine* 0.8 mg/dL (0.5-1.5); Est. Creatinine Clearance* 108.06; Estimated Glomerular Filt Rate 108 ml/min; Potassium* 4.1 mmol/L (3.6-5.1); Sodium* 137 mmol/L (135-149)
[2023-08-21 23:56] LABS: Alanine Aminotransferase* 33 U/L (4-50); Albumin* 4.9 g/dL (3.3-5.0); Alkaline Phosphatase* 41 U/L (40-150); Aspartate Amino Transferase* 33 U/L (12-35); Bilirubin Direct* 0.1 mg/dL (0.0-0.5); Bilirubin Total* 1.2 mg/dL (0.1-1.5); C Reactive Protein* 0.6 mg/dL (0.5-1.0); Calcium* 9.4 mg/dL (8.4-10.6); Glucose* 135 mg/dL (60-115); Total Protein* 8.2 g/dL (6.0-8.3)
[2023-08-22 00:32] LABS: Appearance Urine Clear (Clear); Bilirubin Urine Negative (Negative); Blood Urine Negative (Negative); Color Urine Yellow (Yellow); Glucose Urine Negative (Negative); Ketones Urine Trace (Negative); Leukocyte Esterase Urine Negative (Negative); Nitrite Urine Negative (Negative); Protein Urine Negative (Negative); Urobilinogen Urine 0.2 (0.2-1.0); pH Urine 5.5 (5.0-8.5)
[2023-08-22 00:39] LABS: RBC Urine 0-2 (0-2); Squamous Epithelial Cell Urine Few (None-Few); WBC Urine 0-2 (0-5)
[2023-08-22] MEDS: HYDROCODONE-ACETAMIN 5-325 MG 1 TAB 2 TAB PO (00:53)
== END 2023-08-22 01:00 | disposition home or self-care (01) ==
PROVIDERS: Emergency Provider Emergency Medicine; PCP Family Medicine
DX: J10.1 Influenza due to other identified influenza virus with other respiratory manifestations (principal); R51.9 Headache, unspecified
CPT/HCPCS: 36415; 71046; 80048; 80076; 81001; 83605; 85025; 86140; 87631; 96374; 96375; 99284; A9270; J1885; J2405; J7030

== ENCOUNTER 2023-11-27 21:12 | Emergency (ER) | payer BC, SELFPAY ==
[2023-11-27 21:23] VITALS: BP 126/80; PULSE 90; TEMP 36.8; O2SAT 96; BMI 32.4
--- NOTE | 2023-11-27 22:02 | XR_ITS ---
Patient: CANDE SUBRAMANIAN JR Facility:?[facility] Patient ID:?[id number] Site Patient ID:?[id number]. Site :?[id number] Study:?XRay-Hip Left 2 view with pelvis-11/27/2023 10:21:20 PM Ordering Physician:Merari Albert Final Report: Indication: Posterior hip, upper lateral femur pain, fall. Technique: 3 views of the left hip. Comparison: None. Findings: Bones: Alignment is normal. No fractures or bone lesions. Joint spaces: Unremarkable. Soft tissues: Vasectomy clips. Otherwise, unremarkable. Impression: No evidence of an acute bony abnormality. Dictated by Prince Alvarez MD @ 11/27/2023 10:42:40 PM Signed by:?Prince Alvarez MD @11/27/2023 10:42:40 PM (Electronic Signature)
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
[2023-11-27] MEDS: KETOROLAC 30 MG/ML inj IM (22:27)
== END 2023-11-27 23:05 | disposition home or self-care (01) ==
PROVIDERS: Emergency Provider Student in an Organized Health Care Education/Training Program; PCP Family Medicine
DX: M25.552 Pain in left hip (principal); W05.2XXA Fall from non-moving motorized mobility scooter, initial encounter
CPT/HCPCS: 73502; 96372; 99282; 99283; J1885

== ENCOUNTER 2024-12-12 12:48 | Outpatient (CLI) | payer BC, SELFPAY ==
--- NOTE | 2024-12-12 13:00 | MR_ITS ---
[address] [address] Phone:?[phone] Fax:?[phone] Referring Physician Information: Robbi Saenz M.D. [id number] [facility] [address] Phone:?[phone] Fax:?[phone] Patient:Sarah Torrez D.O.B:?1975 Sex:?Male Phone:?[phone] [facility] MRN:?[id number] Exam Date:?12/12/2024 EXAM: MRI OF THE RIGHT KNEE CLINICAL INFORMATION: The patient is a 49-year-old with right knee pain. Evaluate for lateral meniscal tear. PRIOR SURGERY: None reported. COMPARISON STUDIES: There are no prior studies available for comparison. TECHNICAL INFORMATION: Imaging was performed on a high-field, 1.5 Angelina MR scanner. Axial proton-density and fat-suppressed T2 imaging of the right knee was performed in addition to sagittal proton-density and fat-suppressed proton- density imaging. Coronal proton-density and coronal STIR imaging was also performed. FINDINGS: Articular/Extraarticular collections: Effusion: Moderate. Popliteal cyst: Small, seen on sagittal series 6 image 24. Loose bodies: No well-defined intra-articular loose bodies are present. Subcutaneous and extraarticular soft tissues: Nonspecific subcutaneous soft tissue edema and/or hemorrhage can be seen along the anterior and anteromedial aspects of the right knee. Osseous structures: There is reactive marrow edema seen along the articular surfaces of the medial femoral condyle and medial tibial plateau, in keeping with meniscal tearing and chondral loss discussed below. Additional reactive bony changes are noted involving the posterior aspect of the tibial spines. There is cortical irregularity, subcortical edema, and subcortical sclerosis along the articular surfaces of the patella seen on axial series 4 image 11 with additional marrow edema along the central aspects of the femoral trochlea. The findings are in keeping with patellofemoral chondromalacia and chondral loss discussed below. No other bony abnormalities are seen. Ligamentous structures: ACL: Intact and normal in appearance. PCL: Intact and normal in appearance. MCL: Intact and normal in appearance. LCL: Intact and normal in appearance. Posterolateral corner: Intact and normal in appearance. Posteromedial corner: No posteromedial corner soft tissue injury. Semimembranosus and pes anserine tendons demonstrate no tendinopathy or associated bursitis. Extensor mechanism/Patellar retinacular structures: Patellar tendon: Intact, without tendinopathy. Quadriceps tendon: Intact, without tendinopathy. Retinacula: The medial and lateral retinacula are intact. The medial patellofemoral ligament is intact. Medial compartment: Medial meniscus: The medial meniscus is abnormal in appearance. There is broad- based apical free edge and undersurface tearing of the middle and posterior portions of the medial meniscus, seen on sagittal series 6 image 25 and on coronal series 8 image 21. The area of tearing measures approximately 21 mm in anteroposterior dimension and 25 mm in mediolateral dimension. The anterior horn of the medial meniscus appears intact. No parameniscal cyst formation is identified. Medial femoral condyle: Broad-based changes of grade II to III chondromalacia can be seen along the weightbearing surfaces of the medial femoral condyle. Underlying bony changes are seen. Medial tibial plateau: Grade II chondromalacia can be seen along the weightbearing surfaces of the medial tibial plateau. Lateral compartment: Lateral meniscus: No evidence for lateral meniscal tearing is present. No evidence for parameniscal cyst formation can be seen. Lateral femoral condyle: No chondromalacia, chondral defect, or osteochondral abnormality. Lateral tibial plateau: Grade II chondromalacia can be seen along the central and medial weightbearing surfaces of the lateral femoral condyle. No full- thickness chondral defects are seen. Patellofemoral compartment: Patella: There is full-thickness chondral loss involving the patellar apex and adjacent portions of the medial and lateral patellar facets, seen on axial series 3 image 12 and on sagittal series 6 image 17. The area of chondral loss measures 22 mm in mediolateral dimension and 18 mm in craniocaudal dimension. Underlying bony changes are noted. Trochlea: Grade II to III chondromalacia can be seen along the central and medial articular surfaces of the femoral trochlea. Underlying bony changes are noted. Neurovascular: No definite neurovascular abnormalities are seen. CONCLUSION: 1. Broad-based tearing of the middle and posterior portions of the medial meniscus. No lateral meniscal tearing is seen. 2. 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 3. The cruciate and collateral ligaments appear intact. 4. Moderate knee joint effusion and small popliteal cyst. AEC Electronically signed on 12/12/2024 4:08:00 PM by Rupesh Baltazar M.D.
== END 2024-12-12 12:49 | disposition home or self-care (01) ==
LOC: MRI 12:49
PROVIDERS: PCP Family Medicine; Visit Provider Orthopaedic Surgery
DX: M25.561 Pain in right knee (principal); S83.241A Other tear of medial meniscus, current injury, right knee, initial encounter; M94.261 Chondromalacia, right knee; M25.461 Effusion, right knee
CPT/HCPCS: 73721